=== PATIENT | male | born 1950 | race Caucasian/White ===

== ENCOUNTER 2020-08-27 09:20 | Observation (INO) | payer OTHER ==
[~2020-08-27] VITALS: Ht 177.8 cm; Wt 105.8 kg
[2020-08-27 09:45] LABS: BASOPHILS ABSOLUTE AUTO 0.08 K/mm3 (0.00-0.23); BASOPHILS PERCENT AUTO 1 % (0-2); EOSINOPHILS ABSOLUTE AUTO 0.31 K/mm3 (0.00-0.68); EOSINOPHILS PERCENT AUTO 4 % (0-6); Hematocrit 41.5 % (37.0-53.0); Hemoglobin 14.5 g/dL (13.5-17.5); IMMATURE GRAN ABSOLUTE AUTO 0.02 K/mm3 (0.00-0.10); IMMATURE GRAN PERCENT AUTO 0 % (0-1); LYMPHOCYTES ABSOLUTE AUTO 2.16 K/mm3 (0.84-5.20); LYMPHOCYTES PERCENT AUTO 30 % (21-46); MONOCYTES ABSOLUTE AUTO 0.67 K/mm3 (0.16-1.47); MONOCYTES PERCENT AUTO 9 % (4-13); Mean Corpuscular HGB 31.7 pg (26.0-34.0); Mean Corpuscular HGB Conc 34.9 g/dL (31.5-36.5); Mean Corpuscular Volume 91 fL (80-100); Mean Platelet Volume 10.4 fL (9.1-12.4); NEUTROPHILS ABSOLUTE AUTO 4.09 K/mm3 (1.96-9.15); NEUTROPHILS PERCENT AUTO 56 % (41-73); Platelet Count 226 K/mm3 (150-400); RDW Coefficient Variation 12.2 % (11.7-14.2); RDW Standard Deviation 40.3 fL (35.1-46.3); Red Blood Cell Count 4.57 M/mm3 (4.30-5.90); White Blood Cell Count 7.33 K/mm3 (4.00-11.30)
[2020-08-27 10:10] LABS: Alanine Aminotransfer (ALT/SGP 20 U/L (12-78); Albumin, Blood 4.3 g/dL (3.4-5.0); Albumin/Globulin Ratio 1.2 (0.8-1.8); Alk Phos 68 U/L (50-136); Anion Gap 5 mmol/L (6-16); Aspartate Aminotrans (AST/SGOT 23 U/L (12-37); Bilirubin, Total 0.8 mg/dL (0.1-1.0); Blood Urea Nitrogen 17 mg/dL (8-24); Bun/Creatinine Ratio 16.7 (12.0-20.0); CO2, Blood 25 mmol/L (21-32); Calcium, Blood 9.2 mg/dL (8.5-10.1); Chloride, Blood 107 mmol/L (98-108); Creatinine, Blood 1.02 mg/dL (0.60-1.20); Globulin, Blood 3.6 g/dL (2.2-4.0); Glomerular Filtration Rate >60 (60-); Glucose, Blood 111 mg/dL (70-99); Potassium, Blood 3.8 mmol/L (3.5-5.5); Sodium, Blood 137 mmol/L (136-145); Total Protein, Blood 7.9 g/dL (6.4-8.2); Troponin I <0.015 ng/mL (0.000-0.040)
--- NOTE | 2020-08-27 17:30 | NUR ---
SHIFT SUMMARY PT ARRIVED TO UNIT FROM ER AT APPROXIMATELY 1405. PT IS AOX4 AND PLEASANT. PT DENIES CP, N/V, SOB. PT IS INDEPENDENT IN ROOM. APPETITE IS GOOD. TELE IS RUNNING NORMAL SINUS RHYTHM WIHT PVCS. PLAN IS FOR STRESS TEST TOMORROW. PT HAD ECHO, EKG, AND CHEST XRAY IN ER. PT'S VISITED THIS TITO. PT IS IN CHAIR, CALL LIGHT IN REACH.
--- NOTE | 2020-08-28 02:51 | NUR ---
70 year old Male with OBS status for chest pain that radiated to lt arm has echo qwhich showed SR with occ PVC this shift. PT has CP x 1 2/10 scale lt upper outer chest. HX of rheumatic fever in childhood. PRN tylenol offer & taken at HS with helpful effect. troponins neg x 3 & Tele shows NSR occasional PVCs. PT has hx of degen. disc disease with hx of cervical fusion. CXR showed mod severe endplate thoratic spine endplate spurring. Denies thoratic back pain. PT has untreated MICHELLE, says he hasn ot used CPAP in 10 years, room air indep in room.
[2020-08-28 06:05] LABS: CHOL/HDL RATIO 5.6; Cholesterol 241 mg/dL (50-200); HDL Cholesterol 43 mg/dL (>39); LDL/HDL RATIO 3.7; Low Density Lipoprotein Chol 159 mg/dL (0-110); Triglycerides 194 mg/dL (30-160); Very Low Density Lipoprot Chol 38 mg/dL (6-32)
--- NOTE | 2020-08-28 06:15 | NUR ---
no chest pain currently neg troponins, cholesterol elevated on AM labs. Pleasant & cooperative. on room air, no snoring observed.
[2020-08-28] MEDS ORDERED: ASPI81CH PO (10:25)
[2020-08-28] MEDS ORDERED: Prinivil10 MG PO (10:26)
--- NOTE | 2020-08-28 11:22 | NUR ---
SUMMARY/DISCHARGE PT DISCHARGED TO HOME WITH HIS , PT HAS BEEN ALERT AND ORIENTED, UP INDEP IN THE ROOM, NO CHEST PAIN, PT VERBALIZED UNDERSTANDING OF DISCHARGE INSTRUCTIONS REGARDING MEDS AND FOLLOW UP, PT TAKEN OUT SAFELY VIA WHEELCHAIR
[2020-08-28] MEDS ORDERED: NITR.4SL SL (11:24)
== END 2020-08-28 11:10 | disposition home or self-care (01) ==
LOC: ER 09:20 → MEDS 09:21
PROVIDERS: Nurse Practitioner Acute Care; Physician Assistant; ADMIT Hospitalist
DX: R07.89 Other chest pain (principal); I10 Essential (primary) hypertension; G47.33 Obstructive sleep apnea (adult) (pediatric); E66.01 Morbid (severe) obesity due to excess calories; E78.00 Pure hypercholesterolemia, unspecified; I71.4 Abdominal aortic aneurysm, without rupture; Z79.82 Long term (current) use of aspirin; Z68.35 Body mass index [BMI] 35.0-35.9, adult
CPT/HCPCS: 36415; 71046; 80053; 80061; 84484; 85025; 93005; 93010; 93306; 99285-25; A9270; G0378

== ENCOUNTER 2020-10-17 07:41 | Day surgery (SDC) | payer OTHER ==
[~2020-10-17 07:41] MED LIST: ASPI81CH PO; NITR.4SL SL; Prinivil10 MG PO
--- NOTE | 2020-10-17 09:47 | NUR ---
Patient up to Ambulate independently. Gait steady. Discharge instructions reviewed with patient. Patient verbalizes understanding. Copy given to patient to take home. PT AMBULATED WITH RN ESCORT TO DOOR.
== END 2020-10-17 23:32 | disposition home or self-care (01) ==
LOC: CT 07:41 → ORD 07:41 → CT 09:00 → ORD 23:32
DX: R07.9 Chest pain, unspecified (principal); E66.9 Obesity, unspecified; Z68.33 Body mass index [BMI] 33.0-33.9, adult; E78.5 Hyperlipidemia, unspecified; I10 Essential (primary) hypertension; Z88.8 Allergy status to other drugs, medicaments and biological substances
CPT/HCPCS: 75574; Q9967